=== PATIENT | male | born 1970 | race Two or more races ===

== ENCOUNTER 2019-01-15 05:45 | Inpatient (IN) | payer BC ==
[~2019-01-15] VITALS: Ht 167.6 cm; Wt 111.1 kg
[2019-01-15] MEDS ORDERED: MORPHINE SULFATE 4 MG/1 ML DISP.SYRIN ONE (06:22)
[2019-01-15] MEDS ORDERED: MORPHINE SULFATE 2 MG/1 ML DISP.SYRIN ONE (06:23)
[2019-01-15] MEDS ORDERED: IV NORMAL SALINE 1000 ML BAG IV ONE (06:30)
[2019-01-15] MEDS ORDERED: KETOROLAC TROMETHAMINE 15 MG INJ IV ONE (06:30)
[2019-01-15] MEDS ORDERED: MORPHINE SULFATE 2 MG/1 ML DISP.SYRIN IM ONE (06:30)
[2019-01-15] MEDS ORDERED: ONDANSETRON HCL 4 MG TABLET PO ONE (06:30)
[2019-01-15] MEDS ORDERED: KETAMINE HCL 500 MG/10 ML INJ ONE ×2 (06:38→07:29)
[2019-01-15] MEDS ORDERED: KETAMINE HCL 500 MG/10 ML INJ IV ONE ×2 (06:45→08:15)
[2019-01-15 06:55] LABS: BASOPHILS % (AUTO) 0.4 % (0.0-2.0); EOSINOPHILS # (AUTO) 0.1 K/uL (0.0-0.7); EOSINOPHILS % (AUTO) 1.3 % (0.0-7.0); HEMATOCRIT 46.3 % (36.7-47.1); HEMOGLOBIN 15.5 g/dL (12.5-16.3); LYMPHOCYTES % (AUTO) 18.4 % (20.5-51.5); MEAN CORPUSCULAR HEMOGLOBIN 29.1 uug (23.8-33.4); MEAN CORPUSCULAR HGB CONC 33 g/dL (32.5-36.3); MONOCYTES # (AUTO) 0.5 K/uL (2.0-10.0); MONOCYTES % (AUTO) 4.1 % (0.0-11.0); NEUTROPHILS # (AUTO) 8.4 K/uL (1.8-8.9); NEUTROPHILS % (AUTO) 75.8 % (38.5-71.5); PLATELET COUNT (AUTO) 194 K/uL (152-348); RED BLOOD CELL COUNT(AUTO) 5.32 MIL/uL (4.06-5.63)
[2019-01-15] MEDS ORDERED: IV NORMAL SALINE 250 ML IV ONE (06:58)
[2019-01-15] MEDS ORDERED: SWABABLE VALVE TRANSFER SET EA MC ONE (06:58)
[2019-01-15] MEDS ORDERED: IOHEXOL 300MG/ML 100 ML INFUS..BTL ONE (06:58)
[2019-01-15] MEDS ORDERED: KETOROLAC TROMETHAMINE 15 MG INJ ONE (07:00)
[2019-01-15] MEDS ORDERED: ONDANSETRON HCL 4 MG TABLET ONE (07:01)
[2019-01-15 07:07] LABS: CREATININE 1.1 mg/dL (0.6-1.3); POTASSIUM 3.9 mmol/L (3.5-5.1)
[2019-01-15 07:13] LABS: BILIRUBIN,DIRECT 0.1 mg/dL (0.0-0.2); BILIRUBIN,TOTAL 0.6 mg/dL (0.2-1.0); TOTAL PROTEIN, SERUM 7.6 g/dL (6.4-8.2)
--- NOTE | 2019-01-15 07:17 | NUR ---
Tele S/r 90's IV N.S. 0.9% infusing to left a.c. no edema or redness noted. X-rays done. Labs drawn.
[2019-01-15] MEDS ORDERED: HYDROMORPHONE 1 MG/1 ML DISP.SYRIN ONE (07:28)
[2019-01-15] MEDS ORDERED: HYDROMORPHONE 1 MG/1 ML DISP.SYRIN IV ONE ×2 (07:30)
[2019-01-15] MEDS ORDERED: ONDANSETRON 4 MG/2 ML VIAL IV ONE ×2 (07:30→10:00)
--- NOTE | 2019-01-15 07:55 | NUR ---
Pt out of ER for CT.
[2019-01-15] MEDS ORDERED: ONDANSETRON 4 MG/2 ML VIAL ONE ×2 (08:13→09:43)
--- NOTE | 2019-01-15 08:55 | NUR ---
Pt back from Ct, states his pain is tolorable at this point. RT foot noted delayed cap refill, Dr segundo made aware. Opened servando wrap, pedal pulses WNL. CMS WNL on RLE.
--- NOTE | 2019-01-15 10:15 | NUR ---
Re did short leg splint of RLE, pt tolorated well. family at the bedside.
--- NOTE | 2019-01-15 10:16 | NUR ---
ODETTE MEJIA left a message for Dr Vera(Ortho surgeon).
[2019-01-15] MEDS ORDERED: ONDANSETRON 4 MG/2 ML VIAL IV PRN (11:00)
[2019-01-15] MEDS ORDERED: ACETAMINOPHEN 325 MG TABLET PO PRN (11:00)
[2019-01-15] MEDS ORDERED: MAGNESIUM HYDROXIDE 30 ML LIQUID UDC PO PRN (11:00)
[2019-01-15] MEDS ORDERED: HYDROCODONE/APAP 5-325MG TABLET PO PRN (11:00)
[2019-01-15] MEDS ORDERED: Z GUARD REMEDY PASTE 57 GM TUBE TOP PRN (11:00)
--- NOTE | 2019-01-15 11:15 | NUR ---
Dr Foster at the bedside for MSE.
[2019-01-15 12:56] VITALS: BP 138/83
[2019-01-15] MEDS: IV D5 1/2 NS 1000 ML 1,000 ML IV PRN (14:21)
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
[2019-01-15 15:27] VITALS: BP 130/80
--- NOTE | 2019-01-15 17:01 | NUR ---
LEFT MESSAGE BY CHARGE NURSE WITH DR VEGA'S OFFICE TO REMIND ABOUT CONSULT
--- NOTE | 2019-01-15 17:53 | NUR ---
PATIENT IS ALERT, ORIENTED X4, VERBALLY RESPONSIVE, NO SOB, RESP EVEN NONLABORED,SKIN WARM AND DRY TO TOUCH, PATIENT IS KEPT NPO, PATIENT COMPLAINED PAIN TO HIS BILATERAL RIB AREA, REQUESTED NARCO, ADMINISTERED WITH SIP OF WATER, PEDAL PULSES ARE PRESENT BILATERALLY. RIGHT WRIST NOTED SWELLING AND WITH DISCOLORATION, HOWEVER NEGATIVE FOR FRACTURE, NO ACUTE DISTRESS NOTED AT THIS TIME,FAMILY IS BEDSIDE.
--- NOTE | 2019-01-15 19:50 | NUR ---
ALERT ORIENTED, NO SOB NO CHEST PAIN, CONT ON PAIN MANAGEMENT OF R LEG, CHECK FOR CIRCULATION AND COLOR, WITHIN WNL, R LEG SPLINT IN PLACE, CONT TO MONITOR.
[2019-01-15 20:00] VITALS: BP 113/63
[2019-01-16] MEDS: MORPHINE SULFATE 2 MG/1 ML DISP.SYRIN IV PRN ×3 (00:07→08:46)
[2019-01-16 05:50] VITALS: BP 106/73
[2019-01-16] MEDS: PANTOPRAZOLE SODIUM 40 MG TABLET.DR PO SCH (06:12)
[2019-01-16 06:33] LABS: BASOPHILS % (AUTO) 0.2 % (0.0-2.0); EOSINOPHILS # (AUTO) 0.1 K/uL (0.0-0.7); HEMATOCRIT 40.2 % (36.7-47.1); HEMOGLOBIN 13.6 g/dL (12.5-16.3); LYMPHOCYTES # (AUTO) 1.3 K/uL (20.0-40.0); LYMPHOCYTES % (AUTO) 16.7 % (20.5-51.5); MEAN CORPUSCULAR HEMOGLOBIN 29.4 uug (23.8-33.4); MEAN CORPUSCULAR HGB CONC 34 g/dL (32.5-36.3); MEAN CORPUSCULAR VOLUME 87.2 fL (73.0-96.2); MONOCYTES # (AUTO) 0.5 K/uL (2.0-10.0); MONOCYTES % (AUTO) 6.8 % (0.0-11.0); NEUTROPHILS # (AUTO) 6.1 K/uL (1.8-8.9); NEUTROPHILS % (AUTO) 75.3 % (38.5-71.5); PLATELET COUNT (AUTO) 165 K/uL (152-348); RED BLOOD CELL COUNT(AUTO) 4.62 MIL/uL (4.06-5.63); WHITE BLOOD COUNT (AUTO) 8.1 K/uL (3.6-10.2)
--- NOTE | 2019-01-16 06:40 | NUR ---
PATIENT ALERT ORIENTED, NO SOB NO CHEST PAIN, CONT ON PAIN MANAGEMENT OF R LEG FX. SKIN WNL, PATIENT ABLE TO WIGGLE TOES WITHOUT DIFFICULTY. CONT ON NPO. CALL LIGHT WITHIN REACH.
[2019-01-16 06:44] LABS: THYROID STIMULATING HORMONE 1.402 mIU/mL (0.358-3.740)
[2019-01-16 06:45] LABS: PHOSPHOROUS 2.7 mg/dL (2.5-4.9); POTASSIUM 3.8 mmol/L (3.5-5.1)
--- NOTE | 2019-01-16 07:15 | NUR ---
RECEIVED REPORT, PATIENT IN BED AWAKE, ALERT AND ORIENTED X4. PATIENT DENIES PAIN, NO DISTRESS NOTED AT THE MOMENT. BED IN LOWEST POSITION, SIDE RAILS UP X2, CALL LIGHT WITHIN REACH. AT BEDSIDE. WILL CONTINUE TO MONITOR
[2019-01-16] MEDS: IV D5 1/2 NS 1000 ML 1,000 ML IV PRN ×2 (08:50→22:32)
[2019-01-16 11:20] VITALS: BP 130/68
[2019-01-16] MEDS ORDERED: MORPHINE SULFATE 2 MG/1 ML DISP.SYRIN IV PRN (11:30)
[2019-01-16] MEDS: MORPHINE SULFATE 4 MG/1 ML DISP.SYRIN IV PRN ×4 (11:40→20:54)
[2019-01-16 15:34] VITALS: BP 121/68
--- NOTE | 2019-01-16 18:25 | NUR ---
PATIENT SLEPT INTERMITTENTLY THROUGHOUT SHIFT. PAIN MEDICATION GIVEN Q3 HOURS. PATIENT SEEN BY DR VEGA FOR FRACTURE IN RIGHT FOOT AND ANKLE. SURGERY SCHEDULED FOR TOMORROW AT 10:30 AM. REVIEWED CONSENT WITH PATIENT AND SIGNED. PEDAL PULSES PRESENT.
--- NOTE | 2019-01-16 19:30 | NUR ---
Received patient awake and alert in bed. A/Ox4 with family at bedside. No signs of acute distress noted. No complaints of pain or SOB, says PRN pain medication is effective. Patient scheduled for surgery in morning, patient will be NPO after midnight. IVF running on the right AC. Safety measures initiated. Bed is low and locked, call light within reach. Will continue to monitor.
[2019-01-16 20:09] VITALS: BP 118/75
[2019-01-17] MEDS: MORPHINE SULFATE 4 MG/1 ML DISP.SYRIN IV PRN ×7 (04:26→23:08)
[2019-01-17 04:59] VITALS: BP 119/78
--- NOTE | 2019-01-17 05:48 | NUR ---
Patient slept well throughout night. No signs of acute distress noted. Complained of pain with PRN pain medication given and was effective. No complaints of SOB. Patient has been NPO since midnight for surgery in AM. Safety measures given. Will endorse to next shift.
[2019-01-17 06:14] LABS: BASOPHILS % (AUTO) 0.3 % (0.0-2.0); EOSINOPHILS # (AUTO) 0.1 K/uL (0.0-0.7); EOSINOPHILS % (AUTO) 1.2 % (0.0-7.0); HEMATOCRIT 38.7 % (36.7-47.1); LYMPHOCYTES # (AUTO) 1.3 K/uL (20.0-40.0); LYMPHOCYTES % (AUTO) 15.8 % (20.5-51.5); MEAN CORPUSCULAR HEMOGLOBIN 29.2 uug (23.8-33.4); MEAN CORPUSCULAR HGB CONC 34 g/dL (32.5-36.3); MEAN CORPUSCULAR VOLUME 86.9 fL (73.0-96.2); MONOCYTES # (AUTO) 0.6 K/uL (2.0-10.0); MONOCYTES % (AUTO) 6.7 % (0.0-11.0); NEUTROPHILS # (AUTO) 6.3 K/uL (1.8-8.9); PLATELET COUNT (AUTO) 164 K/uL (152-348); RED BLOOD CELL COUNT(AUTO) 4.45 MIL/uL (4.06-5.63); WHITE BLOOD COUNT (AUTO) 8.3 K/uL (3.6-10.2)
[2019-01-17] MEDS: PANTOPRAZOLE SODIUM 40 MG TABLET.DR PO SCH (06:19)
[2019-01-17 06:20] LABS: CREATININE 0.9 mg/dL (0.6-1.3); PHOSPHOROUS 2.4 mg/dL (2.5-4.9); POTASSIUM 4.1 mmol/L (3.5-5.1)
[2019-01-17] MEDS ORDERED: POLYMYXIN B SULFATE 500,000 UNITS, BACITRACIN 50,000 UNITS, NORMAL SALINE 20 ML MC ONE ×3 (09:00)
[2019-01-17] MEDS ORDERED: VANCOMYCIN 1000 MG VIAL ONE (09:28)
[2019-01-17] MEDS ORDERED: BUPIVACAINE 0.25% 30 ML VIAL ONE (09:28)
--- NOTE | 2019-01-17 10:00 | NUR ---
Report received this morning. Pt AOx4. No acute distress but Pt reports 8/10 pain. NPO status maintained. Pt VSS, PRN pain medication administered as ordered. Family visiting at bedside. Pt consent and pre-op check list completed in chart. Pt escorted to OR for right foot and ankle ORIF. All comfort and safety measures implemented. Will await return and continue to monitor for safety.
[2019-01-17] MEDS ORDERED: FENTANYL CITRATE 100 MCG/2 ML AMPUL ONE (10:47)
[2019-01-17] MEDS ORDERED: MEPERIDINE 25 MG/1 ML DISP.SYRIN ONE (12:30)
--- NOTE | 2019-01-17 12:50 | NUR ---
Pt returns to the unit, report received from WELT CUTTER. New orders received. Right leg elevated. Ice pack applied. Clear liquid diet until advancement tolerated. NWB status to right leg until PT eval for crutches. VSS. PRN pain medication administered as ordered for "15/10" pain to Sx site. Family visiting at bedside. Pt teaching provided. Right forearm IV patent and fluids running per MD orders. All comfort and safety needs met. Call light placed within reach. Will continue to monitor.
[2019-01-17] MEDS ORDERED: HYDROMORPHONE 1 MG/1 ML DISP.SYRIN ONE (12:51)
[2019-01-17] MEDS ORDERED: ONDANSETRON 4 MG/2 ML VIAL ONE (13:00)
[2019-01-17] MEDS ORDERED: POTASSIUM CHLORIDE 20 MEQ in IV D5 1/2 NS 1000 ML 1,000 ML IV PRN (13:15)
[2019-01-17] MEDS ORDERED: IV D5W-0.45% NS +20 KCL 1,000 ML IV ONE (13:25)
[2019-01-17 14:00] VITALS: BP 156/88
[2019-01-17 14:34] VITALS: BP 160/87
[2019-01-17 15:09] VITALS: BP 155/87
[2019-01-17] MEDS ORDERED: ESMOLOL HCL 100 MG/10 ML VIAL IV ONE (15:21)
[2019-01-17] MEDS ORDERED: SEVOFLURANE 250 ML BOTTLE IH ONE (15:21)
[2019-01-17] MEDS ORDERED: CEFAZOLIN 1 G VIAL MC ONE (15:21)
[2019-01-17] MEDS ORDERED: PROPOFOL 200 MG/20 ML BOTTLE IV ONE (15:21)
[2019-01-17] MEDS ORDERED: IV NORMAL SALINE 1000 ML BAG IV ONE (15:21)
[2019-01-17] MEDS ORDERED: SUCCINYLCHOLINE CHLORIDE 200 MG/10 ML VIAL MC ONE (15:21)
[2019-01-17] MEDS ORDERED: GLYCOPYRROLATE 0.2 MG/ML VIAL MC ONE (15:21)
[2019-01-17] MEDS ORDERED: IRR NORMAL SALINE IRRIGATION 1,000 ML BOTTLE IR ONE (15:21)
[2019-01-17] MEDS ORDERED: SODIUM PHOSPHATE MM 15 MM in IV DEXTROSE 5% 250 ML IV ONE (15:45)
[2019-01-17] MEDS: HYDROCODONE/APAP 10-325 MG TABLET PO PRN ×2 (18:22→22:24)
[2019-01-17] MEDS: CEFAZOLIN 1 G in PREMIXED 1 EACH IV SCH (20:13)
[2019-01-17 20:32] VITALS: BP 136/94
--- NOTE | 2019-01-17 20:44 | NUR ---
called c/o pain to his right foot as per patient 8- pain throbbing pain on and off . checked right foot dressing clean dry and intact with good CMS .right foot elevated with pillow and with ice packs in placed .continue to monitor levels of pain and call light palced with in reach and advised patient to call for assistance .
[2019-01-18] MEDS: CEFAZOLIN 1 G in PREMIXED 1 EACH IV SCH (03:08)
[2019-01-18] MEDS: MORPHINE SULFATE 4 MG/1 ML DISP.SYRIN IV PRN ×3 (03:09→19:00)
--- NOTE | 2019-01-18 03:10 | NUR ---
prn MORPHINE for pain given as per patient request see emar . right foot elevated with 3 pillows dressing clean dry and intact with good Circulation,Movement ,Sensation . .
[2019-01-18] MEDS: HYDROCODONE/APAP 10-325 MG TABLET PO PRN ×3 (04:34→23:59)
[2019-01-18 05:03] VITALS: BP 140/82
[2019-01-18] MEDS: PANTOPRAZOLE SODIUM 40 MG TABLET.DR PO SCH (06:38)
[2019-01-18 06:54] LABS: CREATININE 0.9 mg/dL (0.6-1.3); PHOSPHOROUS 2.8 mg/dL (2.5-4.9)
--- NOTE | 2019-01-18 07:10 | NUR ---
PATIENT IN BED, AOX4. RT. AC IV INTACT. DENIES SOB AT THIS TIME. COMPLAINS OF RT. LEG PAIN. RT. FOOT ELEVATED ON PILLOW. PATENT ABLE TO MOVE TOES IN RT. FOOT AND THERE IS GOOD CAP REFILL TO THE TOES. SAFETY AND FALL PRECAUTIONS IN PLACE. CALL LIGHT IN REACH. BED IN LOW POSITION AND LOCKED. WILL CONTINUE TO MONITOR.
[2019-01-18 10:39] VITALS: BP 137/84
[2019-01-18 14:46] VITALS: BP 119/74
--- NOTE | 2019-01-18 18:10 | NUR ---
PATIENT IN BED THROUGHOUT SHIFT. NO CHANGES IN LEVEL OF CONDITION. AO X 4. SEEN BY PT. ABLE TO AMBULATE 10 STEPS WITH 2 PERSON MAX ASSIST. UNABLE TO USE CRUTCHES AT THIS TIME. EPISODES OF PAIN NOTED, DUE PAIN MEDICATIONS GIVEN, TOLERATED WELL AND EFFECTIVE. DENIES SOB AT THIS TIME. KEPT RT. LEG ELEVATED ON PILLOW. PATENT ABLE TO MOVE TOES IN RT. FOOT AND THERE IS GOOD CAP REFILL TO THE TOES. SAFETY AND FALL PRECAUTIONS IN PLACE. CALL LIGHT KEPT IN REACH. BED IN LOW POSITION AND LOCKED. FAMILY AT BEDSIDE. Addendum: 01/23/19 at 1010 by ANABELL WHITEHEAD RN MOPRHINE 4 MG GIVEN AT 1017 THIS AM FOR 8/10 GENERALIZED BODY PAIN. PT EVALUATED PATIENT. RE-ASSESSED AFTER AN HOUR, PAIN DECREASED TO 2/10. PATIENT INTERMITTENTLY ASLEEP THEREAFTER.
[2019-01-18] MEDS ORDERED: NEUTRA PHOS PACKET PO ONE (19:07)
[2019-01-18 20:00] VITALS: BP 119/63
--- NOTE | 2019-01-18 20:00 | NUR ---
PATIENT ALERT ORIENTED, CONT ON PAIN MANAGEMENT OF R LEG S/P ORIF, PATIENT WITH SLIGHT ELEVATED TEMP, WHEN ASSESSES PATIENT, PATIENT SAID HIS HEAD IS HOT BUT HIS BODY SANDIP, OFFER ICE PACK BUT PATIENT PREFER COLD WET TOWEL APPLIED TO HEAD. PATIENT THERMOSTAT WAS CHECK AND WILL BE ADJUSTED. CONT TO MONITOR.
[2019-01-19 05:06] VITALS: BP 131/86
[2019-01-19] MEDS: PANTOPRAZOLE SODIUM 40 MG TABLET.DR PO SCH (06:01)
[2019-01-19 06:32] LABS: CREATININE 0.9 mg/dL (0.6-1.3); POTASSIUM 3.7 mmol/L (3.5-5.1)
[2019-01-19 06:33] LABS: PHOSPHOROUS 3.2 mg/dL (2.5-4.9)
[2019-01-19 06:35] LABS: BASOPHILS % (AUTO) 0.3 % (0.0-2.0); EOSINOPHILS # (AUTO) 0.2 K/uL (0.0-0.7); EOSINOPHILS % (AUTO) 2.6 % (0.0-7.0); HEMATOCRIT 40.6 % (36.7-47.1); HEMOGLOBIN 13.9 g/dL (12.5-16.3); LYMPHOCYTES # (AUTO) 0.9 K/uL (20.0-40.0); LYMPHOCYTES % (AUTO) 10.9 % (20.5-51.5); MEAN CORPUSCULAR HEMOGLOBIN 29.6 uug (23.8-33.4); MEAN CORPUSCULAR HGB CONC 34 g/dL (32.5-36.3); MEAN CORPUSCULAR VOLUME 86.8 fL (73.0-96.2); MONOCYTES # (AUTO) 0.5 K/uL (2.0-10.0); MONOCYTES % (AUTO) 6.2 % (0.0-11.0); NEUTROPHILS # (AUTO) 6.3 K/uL (1.8-8.9); PLATELET COUNT (AUTO) 175 K/uL (152-348); RED BLOOD CELL COUNT(AUTO) 4.68 MIL/uL (4.06-5.63); WHITE BLOOD COUNT (AUTO) 7.9 K/uL (3.6-10.2)
--- NOTE | 2019-01-19 06:51 | NUR ---
Patient slept comfortably throughout with complaints of pain addressed with prescribed analgesics. All safety and fall precaution measures are in place. Incentive spirometer given to patient with education on how to use and when to use. Call light and personal times are within reach at all times.
[2019-01-19] MEDS: HYDROCODONE/APAP 10-325 MG TABLET PO PRN (10:39)
[2019-01-19 11:24] VITALS: BP 124/76
--- NOTE | 2019-01-19 14:06 | NUR ---
Patient discharged home with all belongings and valuables ; along with prescription ; patient given discharge instructions; patient understood . Patient sent home with walker for walking aid. Patient with stable condition vital signs.
== END 2019-01-19 14:20 | disposition home or self-care (01) | DRG 493 ==
LOC: ER 05:51 → TELE3 11:44 → MEDSURG3 12:15
PROVIDERS: ADMIT Student in an Organized Health Care Education/Training Program; ATTEND Student in an Organized Health Care Education/Training Program
PROC: 0QSJXZZ Reposition Right Fibula, External Approach (ICD-10-PCS; principal; 2019-01-15)
PROC: 0QSJ04Z Reposition Right Fibula with Internal Fixation Device, Open Approach (ICD-10-PCS; 2019-01-17)
PROC: 0SSK04Z Reposition Right Tarsometatarsal Joint with Internal Fixation Device, Open Approach (ICD-10-PCS; 2019-01-17)
DX: S92.321A Displaced fracture of second metatarsal bone, right foot, initial encounter for closed fracture (principal); S22.41XA Multiple fractures of ribs, right side, initial encounter for closed fracture; J98.11 Atelectasis; S82.64XA Nondisplaced fracture of lateral malleolus of right fibula, initial encounter for closed fracture; V43.52XA Car driver injured in collision with other type car in traffic accident, initial encounter; Y92.411 Interstate highway as the place of occurrence of the external cause; S62.112A Displaced fracture of triquetrum [cuneiform] bone, left wrist, initial encounter for closed fracture; E83.51 Hypocalcemia; E83.39 Other disorders of phosphorus metabolism; D72.829 Elevated white blood cell count, unspecified; S82.831A Other fracture of upper and lower end of right fibula, initial encounter for closed fracture
CPT/HCPCS: 36415; 70030-TC; 70450; 71045; 71260; 72125; 72170; 73090; 73110; 73130; 73610; 73630; 73700; 83605; 83735; 84100; 84443; 85025; 85730; 86850; 86900; 86901; 93005; A4217; A4663; C1713; G0378; G0500; J0330; J0690; J1170; J1885; J2175; J2270; J2405; J3010; J3370; J3480; J3490; J7030; J7050; J7060; Q0162; Q9967

== ENCOUNTER 2019-03-21 08:05 | Day surgery (SDC) | payer BC ==
[2019-03-21] MEDS ORDERED: SEVOFLURANE 250 ML BOTTLE IH ONE (08:06)
[2019-03-21] MEDS ORDERED: PROPOFOL 200 MG/20 ML BOTTLE IV ONE (08:06)
[2019-03-21] MEDS ORDERED: ONDANSETRON 4 MG/2 ML VIAL IV ONE (08:06)
[2019-03-21] MEDS ORDERED: METOCLOPRAMIDE HCL 10 MG/2 ML VIAL IV ONE (08:06)
[2019-03-21] MEDS ORDERED: KETOROLAC TROMETHAMINE 30 MG INJ IM ONE (08:06)
[2019-03-21] MEDS ORDERED: CEFAZOLIN 1 G VIAL IM ONE (08:06)
[2019-03-21 08:47] LABS: BASOPHILS % (AUTO) 0.6 % (0.0-2.0); EOSINOPHILS # (AUTO) 0.2 K/uL (0.0-0.7); HEMATOCRIT 48.2 % (36.7-47.1); HEMOGLOBIN 16.1 g/dL (12.5-16.3); LYMPHOCYTES # (AUTO) 2.6 K/uL (20.0-40.0); LYMPHOCYTES % (AUTO) 35.7 % (20.5-51.5); MEAN CORPUSCULAR HEMOGLOBIN 29.4 uug (23.8-33.4); MEAN CORPUSCULAR HGB CONC 33 g/dL (32.5-36.3); MEAN CORPUSCULAR VOLUME 88.1 fL (73.0-96.2); MONOCYTES # (AUTO) 0.4 K/uL (2.0-10.0); MONOCYTES % (AUTO) 5.5 % (0.0-11.0); NEUTROPHILS % (AUTO) 55.2 % (38.5-71.5); PLATELET COUNT (AUTO) 204 K/uL (152-348); RED BLOOD CELL COUNT(AUTO) 5.48 MIL/uL (4.06-5.63); WHITE BLOOD COUNT (AUTO) 7.2 K/uL (3.6-10.2)
[2019-03-21 08:49] LABS: CREATININE 1.1 mg/dL (0.6-1.3); POTASSIUM 3.8 mmol/L (3.5-5.1)
[2019-03-21] MEDS ORDERED: MIDAZOLAM HCL 2 MG/2 ML VIAL ONE (08:55)
[2019-03-21] MEDS ORDERED: FENTANYL CITRATE 250 MCG/5 ML AMPUL ONE (08:55)
[2019-03-21] MEDS ORDERED: POLYMYXIN B SULFATE 500,000 UNITS, BACITRACIN 50,000 UNITS, NORMAL SALINE 20 ML MC ONE ×3 (09:00)
[2019-03-21 09:03] LABS: *BILIRUBIN,URIN NEGATIVE (NEGATIVE); *CLARITY,URINE CLEAR (CLEAR); *COLOR,URINE YELLOW (YELLOW); *KETONES,URINE NEGATIVE (NEGATIVE); *UROBILINOGEN,URINE 0.2 E.U./dl (NORMAL); LEUKOCYTE ESTERASE ,URINE TRACE (NEGATIVE); NITRITE, URINE NEGATIVE (NEGATIVE); PH,URINE 5.5 (5.0-8.0); UGLUCOSE NEGATIVE (NEGATIVE)
[2019-03-21 09:04] LABS: *BLOOD, URINE TRACE (NEGATIVE); BACTERIA,URINE FEW /HPF (NONE SEEN); RBC,URINE 0-3 /HPF (0-3); SQUAMOUS EPITHELIAL CELL,UR FEW /HPF (NONE SEEN); WBC,URINE 0-3 /HPF (0-3)
[2019-03-21] MEDS ORDERED: BUPIVACAINE PF 0.5% 30 ML VIAL ONE (09:58)
[2019-03-21] MEDS ORDERED: ONDANSETRON 4 MG/2 ML VIAL ONE (10:54)
[2019-03-21] MEDS ORDERED: FENTANYL CITRATE 100 MCG/2 ML AMPUL ONE (10:59)
== END 2019-03-21 12:20 | disposition home or self-care (01) ==
LOC: DS 08:05
PROVIDERS: ATTEND Orthopaedic Surgery Sports Medicine
DX: S93.334A Other dislocation of right foot, initial encounter (principal); M19.90 Unspecified osteoarthritis, unspecified site; F15.90 Other stimulant use, unspecified, uncomplicated; Z98.890 Other specified postprocedural states; Z79.899 Other long term (current) drug therapy; X58.XXXA Exposure to other specified factors, initial encounter; Y93.89 Activity, other specified; Y92.89 Other specified places as the place of occurrence of the external cause; Y99.8 Other external cause status
CPT/HCPCS: 20680; 36415; 80048; 81000; 81001; 85025; 85730; J0690; J1885; J2250; J2405 ×2; J2765; J3010 ×2; J3490 ×3; J7120; A4649; A4663